=== PATIENT | female | born 2000 | race African-American/Black ===

== ENCOUNTER 2022-01-24 14:21 | Inpatient (IN) | payer OTHER ==
[~2022-01-24] VITALS: Ht 162.6 cm; Wt 72.0 kg
[2022-01-24 16:02] LABS: HEMATOCRIT 36.8 % (36.0-47.0); HEMOGLOBIN 11.8 g/dl (12.0-15.5); MEAN CORPUSCULAR HEMOGLOBIN 26.2 pg (27.0-33.0); MEAN CORPUSCULAR HGB CONC 32.1 g/dl (32.0-36.5); MEAN CORPUSCULAR VOLUME 81.6 fl (80.0-96.0); PLATELET COUNT, AUTOMATED 318 10^3/uL (150-450); RED BLOOD COUNT 4.51 10^6/uL (4.00-5.40); WHITE BLOOD COUNT 6.6 10^3/uL (4.0-10.0)
[2022-01-24 17:35] LABS: ACETAMINOPHEN LEVEL < 2.0 UG/ML (10.0-20.0); ALBUMIN 3.9 G/DL (3.2-5.2); ALT/SGPT 22 U/L (7.0-40); BILIRUBIN,DIRECT 0.2 MG/DL (<0.4); BILIRUBIN,TOTAL 0.5 MG/DL (0.3-1.2); BLOOD UREA NITROGEN 8 MG/DL (9-23); CARBON DIOXIDE LEVEL 26 MMOL/L (20-31); CHLORIDE LEVEL 104 MMOL/L (98-107); CREATININE FOR GFR 0.72 MG/DL (0.55-1.30); ETHYL ALCOHOL (ETHANOL) 0.003 % (0.000-0.010); GLOMERULAR FILTRATION RATE > 60.0 (>60); GLUCOSE, FASTING 87 MG/DL (60-100); POTASSIUM SERUM 3.8 MMOL/L (3.5-5.1); SODIUM LEVEL 140 MMOL/L (136-145); TOTAL PROTEIN 6.8 G/DL (5.7-8.2)
[2022-01-24 17:37] LABS: AMPHETAMINES LEVEL URINE NEGATIVE (NEGATIVE); BARBITURATES URINE NEGATIVE (NEGATIVE); BENZODIAZEPINES URINE NEGATIVE (NEGATIVE); CANNABINOIDS URINE NEGATIVE (NEGATIVE); COCAINE METABOLITE URINE NEGATIVE (NEGATIVE); METHADONE URINE NEGATIVE (NEGATIVE); OPIATES URINE NEGATIVE (NEGATIVE); PHENCYCLIDINE URINE NEGATIVE (NEGATIVE)
[2022-01-24 17:51] LABS: SALICYLATE LEVEL < 3.0 MG/DL (<30)
[2022-01-24 18:11] LABS: URINE PREG TEST POSITIVE (NEGATIVE)
[2022-01-24 19:11] LABS: THYROID STIMULATING HORMONE 1.442 uIU/ML (0.55-4.78)
[2022-01-24 20:18] LABS: RSV AMPLIFICATION NEGATIVE (NEGATIVE)
[2022-01-24] MEDS ORDERED: ACETAMINOPHEN TAB 650MG DOSE (2X325MG) PO ONE (22:10)
[2022-01-24] MEDS ORDERED: hydrOXYzine 50 MG TAB PO PRN (22:20)
[2022-01-24] MEDS ORDERED: MOM 30ML SUSPENSION UDC PO PRN (22:20)
[2022-01-24] MEDS ORDERED: ACETAMINOPHEN TAB 650MG DOSE (2X325MG) PO PRN (22:20)
[2022-01-24] MEDS ORDERED: MAALOX 30 ML SUSP *UDC PO PRN (22:20)
[2022-01-24] MEDS ORDERED: MELA1TAB9 PO (22:39)
[2022-01-24] MEDS ORDERED: HOME MED LIST COMPLETE! XX SCH (22:40)
[2022-01-24 23:28] VITALS: BP 134/71
[2022-01-25 06:11] VITALS: BP 118/56
[2022-01-25 18:21] VITALS: BP 111/55
[2022-01-26 13:11] LABS: APPEARANCE, URINE MANUAL HAZY (CLEAR); BILIRUBIN, URINE MANUAL NEGATIVE (NEGATIVE); BLOOD URINE MANUAL POSITIVE (NEGATIVE); COLOR, URINE MANUAL YELLOW (YELLOW); GLUCOSE, URINE (UA) MANUAL NEGATIVE (NEGATIVE); KETONE, URINE MANUAL NEGATIVE (NEGATIVE); LEUKOCYTE ESTERASE, URINE MAN POSITIVE (NEGATIVE); NITRITE, URINE MANUAL POSITIVE (NEGATIVE); PROTEIN, URINE MANUAL NEGATIVE (NEGATIVE); UROBILINOGEN, URINE MANUAL NORMAL (NORMAL)
[2022-01-26 13:29] LABS: BACTERIA, URINE LARGE AMOUNT; SQUAMOUS EPITHELIAL CELL URINE LARGE AMOUNT /hpf (SMALL AMT); WBC, URINE 30-40 /hpf (0-3)
[2022-01-26 13:30] LABS: HYALINE CAST, URINE NONE SEEN /lpf (0-1)
[2022-01-26 18:24] VITALS: BP 114/63
[2022-01-26] MEDS: CEFDINIR 300 MG CAP (OMNICEF) PO SCH (21:39)
[2022-01-26] MEDS: traZODone 50 MG TAB PO PRN (21:39)
[2022-01-27 06:00] VITALS: BP 114/53
[2022-01-27] MEDS: CEFDINIR 300 MG CAP (OMNICEF) PO SCH ×2 (08:52→21:58)
[2022-01-27 16:51] VITALS: BP 131/78
[2022-01-27] MEDS: traZODone 50 MG TAB PO PRN (21:58)
[2022-01-28 06:26] VITALS: BP 127/56
[2022-01-28] MEDS: CEFDINIR 300 MG CAP (OMNICEF) PO SCH (08:54)
[2022-01-28] MEDS ORDERED: CEFD300CAP PO (10:09)
== END 2022-01-28 14:06 | disposition home or self-care (01) | DRG 881 ==
LOC: M ED 14:21 → M ED INP 22:19 → M PSY 23:25
PROVIDERS: ADMIT Psychiatry & Neurology Psychiatry; ATTEND Psychiatry & Neurology Psychiatry
DX: F32.A Depression, unspecified (principal); R45.851 Suicidal ideations; D64.9 Anemia, unspecified

== ENCOUNTER 2022-07-03 06:58 | Emergency (ER) | payer OTHER ==
[~2022-07-03] VITALS: Ht 162.6 cm; Wt 71.7 kg
[~2022-07-03 06:58] MED LIST: CEFD300CAP PO; MELA1TAB9 PO
[2022-07-03] MEDS ORDERED: PRENTAB7 (07:07)
[2022-07-03] MEDS ORDERED: METR0.759 (07:07)
[2022-07-03] MEDS ORDERED: AMOX500C (07:07)
[2022-07-03] MEDS ORDERED: NS 1,000 ML IV ONE (07:30)
[2022-07-03 08:16] LABS: BASO % 0.6 % (0.0-1.0); EOS # 0.1 10^3/uL (0.0-0.5); EOS % 1.3 % (0.0-3.0); HEMATOCRIT 37.2 % (36.0-47.0); HEMOGLOBIN 12.1 g/dl (12.0-15.5); LYMPH % 36.2 % (24.0-44.0); MEAN CORPUSCULAR HEMOGLOBIN 25.4 pg (27.0-33.0); MEAN CORPUSCULAR HGB CONC 32.5 g/dl (32.0-36.5); MEAN CORPUSCULAR VOLUME 78.2 fl (80.0-96.0); MONO # 0.5 10^3/uL (0.0-0.8); MONO % 8.8 % (2.0-8.0); NEUTROPHILS # 2.9 10^3/uL (1.5-8.5); NEUTROPHILS % 52.7 % (36.0-66.0); PLATELET COUNT, AUTOMATED 196 10^3/uL (150-450); RED BLOOD COUNT 4.76 10^6/uL (4.00-5.40); WHITE BLOOD COUNT 5.4 10^3/uL (4.0-10.0)
[2022-07-03 08:45] LABS: LIPASE 22 U/L (12-53)
[2022-07-03 08:47] LABS: ALBUMIN 3.3 G/DL (3.2-5.2); ALKALINE PHOSPHATASE 70 U/L (46-116); ALT/SGPT 15 U/L (7.0-40); AST/SGOT 18 U/L (<34); BILIRUBIN,DIRECT 0.1 MG/DL (<0.4); BILIRUBIN,TOTAL 0.3 MG/DL (0.3-1.2); BLOOD UREA NITROGEN 10 MG/DL (9-23); CALCIUM LEVEL 9.2 MG/DL (8.5-10.1); CARBON DIOXIDE LEVEL 23 MMOL/L (20-31); CHLORIDE LEVEL 107 MMOL/L (98-107); CREATININE FOR GFR 0.59 MG/DL (0.55-1.30); GLOMERULAR FILTRATION RATE > 60.0 (>60); GLUCOSE, FASTING 83 MG/DL (60-100); SODIUM LEVEL 137 MMOL/L (136-145); TOTAL PROTEIN 6.5 G/DL (5.7-8.2)
[2022-07-03 09:36] VITALS: BP 109/56
== END 2022-07-03 09:39 | disposition home or self-care (01) ==
LOC: M ED 06:58
DX: O26.891 Other specified pregnancy related conditions, first trimester (principal); R10.9 Unspecified abdominal pain; Z3A.11 11 weeks gestation of pregnancy; Z91.018 Allergy to other foods; Z91.040 Latex allergy status; Z79.2 Long term (current) use of antibiotics; Z79.810 Long term (current) use of selective estrogen receptor modulators (SERMs); Z79.899 Other long term (current) drug therapy

== ENCOUNTER 2022-11-22 21:19 | Emergency (ER) | payer OTHER ==
[~2022-11-22] VITALS: Ht 162.6 cm; Wt 85.4 kg
[~2022-11-22 21:19] MED LIST changes: +AMOX500C; +METR0.759; +PRENTAB7
[2022-11-22] MEDS ORDERED: NS 1,000 ML IV ONE (22:15)
[2022-11-22 22:40] LABS: HEMATOCRIT 34.9 % (36.0-47.0); HEMOGLOBIN 11.7 g/dl (12.0-15.5); MEAN CORPUSCULAR HEMOGLOBIN 26.6 pg (27.0-33.0); MEAN CORPUSCULAR HGB CONC 33.5 g/dl (32.0-36.5); MEAN CORPUSCULAR VOLUME 79.3 fl (80.0-96.0); PLATELET COUNT, AUTOMATED 232 10^3/uL (150-450); WHITE BLOOD COUNT 6.1 10^3/uL (4.0-10.0)
[2022-11-22 22:56] LABS: INR 1.03; PROTHROMBIN TIME 13.2 SECONDS (12.5-14.5)
[2022-11-22 22:57] LABS: PARTIAL THROMBOPLASTIN TIME 25.8 SECONDS (24.8-34.2)
[2022-11-22] MEDS ORDERED: ANUS25SU PR (23:03)
[2022-11-22] MEDS ORDERED: COLA100C5 PO (23:03)
[2022-11-22 23:11] LABS: LIPASE 25 U/L (12-53)
[2022-11-22 23:13] LABS: ALKALINE PHOSPHATASE 120 U/L (46-116); ALT/SGPT 18 U/L (7.0-40); AST/SGOT 18 U/L (<34); BILIRUBIN,TOTAL 0.3 MG/DL (0.3-1.2); BLOOD UREA NITROGEN 9 MG/DL (9-23); CALCIUM LEVEL 8.9 MG/DL (8.5-10.1); CARBON DIOXIDE LEVEL 25 MMOL/L (20-31); CHLORIDE LEVEL 106 MMOL/L (98-107); CREATININE FOR GFR 0.61 MG/DL (0.55-1.30); GLOMERULAR FILTRATION RATE > 60.0 (>60); GLUCOSE, FASTING 123 MG/DL (60-100); MAGNESIUM LEVEL 1.4 MG/DL (1.8-2.4); POTASSIUM SERUM 3.7 MMOL/L (3.5-5.1); SODIUM LEVEL 138 MMOL/L (136-145); TOTAL PROTEIN 6.4 G/DL (5.7-8.2)
[2022-11-22 23:56] VITALS: BP 114/68; TEMP 98.4; O2SAT 99
== END 2022-11-22 23:59 | disposition home or self-care (01) ==
LOC: M ED 21:19
DX: K64.9 Unspecified hemorrhoids (principal); Z91.018 Allergy to other foods; Z91.040 Latex allergy status; Z79.2 Long term (current) use of antibiotics; Z79.810 Long term (current) use of selective estrogen receptor modulators (SERMs); Z79.899 Other long term (current) drug therapy

== ENCOUNTER 2023-01-12 02:52 | Outpatient (CLI) | payer OTHER ==
[~2023-01-12] VITALS: Ht 162.6 cm; Wt 90.3 kg
[~2023-01-12 02:52] MED LIST changes: +ANUS25SU PR; +COLA100C5 PO
[2023-01-12 03:08] VITALS: BP 117/68
[2023-01-12] MEDS ORDERED: HOME MED LIST COMPLETE! XX SCH (03:10)
[2023-01-12] MEDS ORDERED: NALBUPHINE HCL 1MG/0.1ML (100MG/10ML) MDV IV PRN (03:35)
[2023-01-12 06:18] VITALS: BP 101/57
== END 2023-01-12 07:30 | disposition home or self-care (01) ==
LOC: M LDO 02:52
PROVIDERS: ATTEND Obstetrics & Gynecology
DX: O47.1 False labor at or after 37 completed weeks of gestation (principal); Z3A.38 38 weeks gestation of pregnancy; Z91.018 Allergy to other foods; Z91.040 Latex allergy status
CPT/HCPCS: 59025; 96374; G0463

== ENCOUNTER 2023-01-24 17:17 | Inpatient (IN) | payer OTHER ==
[~2023-01-24] VITALS: Ht 162.6 cm; Wt 91.4 kg
[2023-01-24] VITALS (14 sets, daily range): BP systolic 98–141; BP diastolic 56–81
[2023-01-24] MEDS ORDERED: PROC2.5C TOP (17:40)
[2023-01-24] MEDS ORDERED: HOME MED LIST COMPLETE! XX SCH (17:40)
[2023-01-24] MEDS ORDERED: PENICILLIN G POTASSIUM 5 MU IV 5 MU in D5W MINI-BAG PLUS 100 ML IV STA (18:24)
[2023-01-24] MEDS ORDERED: LACTATED RINGER'S 1000 ML IV STA (18:24)
[2023-01-24] MEDS ORDERED: OXYTOCIN INJ 10UNITS/ML 1ML VIAL IM PRN (18:25)
[2023-01-24] MEDS ORDERED: TRANEXAMIC ACID INJection 1,000 MG in NS 100 ML IV PRN (18:25)
[2023-01-24] MEDS ORDERED: METHYLERGONOVINE MALEATE 0.2MG/ML 1ML VIAL IM PRN (18:25)
[2023-01-24] MEDS ORDERED: OXYTOCIN DRIP 30 UNITS in IV 1 EA IV PRN ×6 (18:25)
[2023-01-24] MEDS ORDERED: LIDOCAINE 1% MDV 20ML VIAL INFIL PRN (18:25)
[2023-01-24] MEDS ORDERED: OXYTOCIN DRIP 30 UNITS in IV 1 EA IV SCH (18:25)
[2023-01-24] MEDS ORDERED: OXYTOCIN INJ 10UNITS/ML 1ML VIAL IV PRN (18:25)
[2023-01-24] MEDS ORDERED: CARBOPROST TROMETHAMINE 250 MCG/ML AMP IM PRN (18:25)
[2023-01-24 19:01] LABS: BASO % 0.3 % (0.0-1.0); EOS # 0.1 10^3/uL (0.0-0.5); EOS % 0.9 % (0.0-3.0); HEMATOCRIT 33.8 % (36.0-47.0); HEMOGLOBIN 10.9 g/dl (12.0-15.5); LYMPH # 1.7 10^3/uL (1.5-5.0); LYMPH % 29.9 % (24.0-44.0); MEAN CORPUSCULAR HEMOGLOBIN 24.2 pg (27.0-33.0); MEAN CORPUSCULAR HGB CONC 32.2 g/dl (32.0-36.5); MEAN CORPUSCULAR VOLUME 75.1 fl (80.0-96.0); MONO # 0.4 10^3/uL (0.0-0.8); MONO % 6.1 % (2.0-8.0); NEUTROPHILS # 3.6 10^3/uL (1.5-8.5); NEUTROPHILS % 62.1 % (36.0-66.0); PLATELET COUNT, AUTOMATED 244 10^3/uL (150-450); WHITE BLOOD COUNT 5.8 10^3/uL (4.0-10.0)
[2023-01-24 20:35] LABS: TOTAL PROTEIN,RANDOM URINE 10.7 MG/DL (0.0-14.0)
[2023-01-24 20:40] LABS: CREATININE,RANDOM URINE 77.5 MG/DL
[2023-01-24] MEDS ORDERED: ONDANSETRON 4MG 2ML VIAL IV PRN (21:05)
[2023-01-24] MEDS ORDERED: ePHEDrine SULFATE 25 MG/5 ML(5MG/ML) SYRINGE IVP PRN (21:05)
[2023-01-24] MEDS ORDERED: LR 500 ML IV PRN (21:05)
[2023-01-24] MEDS ORDERED: diphenhydrAMINE 50MG/ML VIAL IV PRN (21:05)
[2023-01-24] MEDS ORDERED: NALOXONE INJ 0.4MG/1ML VIAL IV PRN (21:05)
[2023-01-24] MEDS ORDERED: EPIDURAL/PCA KEYS XX PRN (21:05)
[2023-01-24] MEDS: FENTANYL/ROPIVACAINE/NACL BAG 100 ML EPIDURAL SCH (21:09)
[2023-01-24] MEDS: PEN G POT 3,000,000 UNIT/50 ML 3,000,000 UNIT in IV 1 EA IV SCH (22:59)
[2023-01-25] VITALS (37 sets, daily range): BP systolic 84–148; BP diastolic 48–89; O2SAT 100
[2023-01-25] MEDS: PEN G POT 3,000,000 UNIT/50 ML 3,000,000 UNIT in IV 1 EA IV SCH ×3 (03:08→11:01)
[2023-01-25] MEDS: LR 1,000 ML IV SCH ×4 (03:09→09:31)
[2023-01-25] MEDS: FENTANYL/ROPIVACAINE/NACL BAG 100 ML EPIDURAL SCH (06:29)
[2023-01-25] MEDS ORDERED: OXYTOCIN DRIP 30 UNITS in IV 1 EA IV SCH (16:40)
[2023-01-25] MEDS ORDERED: METHYLERGONOVINE MALEATE 0.2 MG TAB PO PRN (16:40)
[2023-01-25] MEDS ORDERED: METOCLOPRAMIDE INJ 10MG/2ML VIAL IV PRN (16:40)
[2023-01-25] MEDS ORDERED: IBUPROFEN 600MG TAB PO PRN (16:40)
[2023-01-25] MEDS ORDERED: LR 1,000 ML IV SCH (16:40)
[2023-01-25] MEDS ORDERED: MOM 30ML SUSPENSION UDC PO PRN (16:40)
[2023-01-25] MEDS ORDERED: RHOGAM 300MCG (1500IU) INJ IM SCH (16:40)
[2023-01-25] MEDS ORDERED: ACETAMINOPHEN TAB 650MG DOSE (2X325MG) PO PRN (16:40)
[2023-01-25] MEDS: OXYTOCIN DRIP 30 UNITS in IV 1 EA IV SCH ×2 (16:40→18:31)
[2023-01-25] MEDS: IBUPROFEN 800 MG TAB PO PRN (17:45)
[2023-01-25] MEDS: DIBUCAINE 1% OINTMENT 30GM TOP PRN (18:30)
[2023-01-25] MEDS: ACETAMINOPHEN 500 MG TAB PO PRN (19:56)
[2023-01-26] MEDS: IBUPROFEN 800 MG TAB PO PRN ×3 (02:18→20:22)
[2023-01-26 05:30] VITALS: BP 112/48; O2SAT 95
[2023-01-26] MEDS: ACETAMINOPHEN 500 MG TAB PO PRN ×2 (06:11→17:20)
[2023-01-26] MEDS: PRENATAL VITAMINS CHEWABLE TABLET PO SCH (07:57)
[2023-01-26] MEDS: DOCUSATE SODIUM 100MG CAPSULE PO PRN (07:57)
[2023-01-26] MEDS: DIBUCAINE 1% OINTMENT 30GM TOP PRN (16:04)
[2023-01-27 01:30] VITALS: BP 108/60; O2SAT 100
[2023-01-27] MEDS: ACETAMINOPHEN 500 MG TAB PO PRN (02:28)
[2023-01-27] MEDS: DIBUCAINE 1% OINTMENT 30GM TOP PRN (03:24)
[2023-01-27 06:33] VITALS: BP 120/50
[2023-01-27] MEDS: PRENATAL VITAMINS CHEWABLE TABLET PO SCH (08:07)
[2023-01-27] MEDS: DOCUSATE SODIUM 100MG CAPSULE PO PRN (08:07)
[2023-01-27] MEDS ORDERED: MEASLES,MUMPS,RUBELLA VACCINE INJ (MMR-II) SC.IMMUN ONE (09:00)
[2023-01-27] MEDS: IBUPROFEN 800 MG TAB PO PRN (09:44)
== END 2023-01-27 12:50 | disposition home or self-care (01) | DRG 807 ==
LOC: M LDO 17:17 → M LDI 18:16 → M OBS 01-25 18:36
PROVIDERS: ADMIT Obstetrics & Gynecology; ATTEND Obstetrics & Gynecology
PROC: 10E0XZZ Delivery of Products of Conception, External Approach (ICD-10-PCS; principal; 2023-01-25)
PROC: 0KQM0ZZ Repair Perineum Muscle, Open Approach (ICD-10-PCS; 2023-01-25)
DX: O99.214 Obesity complicating childbirth (principal); Z37.0 Single live birth; Z3A.39 39 weeks gestation of pregnancy; E66.3 Overweight; O99.824 Streptococcus B carrier state complicating childbirth; F41.9 Anxiety disorder, unspecified; O99.344 Other mental disorders complicating childbirth; O70.1 Second degree perineal laceration during delivery

== ENCOUNTER 2023-05-30 23:05 | Emergency (ER) | payer OTHER ==
[~2023-05-30] VITALS: Ht 162.6 cm; Wt 91.3 kg
[~2023-05-30 23:05] MED LIST changes: -MELA1TAB9 PO; +MELA5TAB58 PO; +PROC2.5C TOP
[2023-05-31 02:02] VITALS: BP 124/86; TEMP 98.8; O2SAT 98
== END 2023-05-31 02:04 | disposition home or self-care (01) ==
LOC: M ED 23:05
DX: J06.9 Acute upper respiratory infection, unspecified (principal); F41.9 Anxiety disorder, unspecified; F32.A Depression, unspecified; F17.200 Nicotine dependence, unspecified, uncomplicated; F10.10 Alcohol abuse, uncomplicated; Z91.040 Latex allergy status; Z91.018 Allergy to other foods